=== PATIENT | female | born 1985 | race Caucasian/White ===

== ENCOUNTER 2017-04-26 14:07 | Inpatient (IN) | payer OTHER ==
[2017-04-26] MEDS: LACTATED RINGER'S 1,000 ML IV ×2 (15:29→23:33)
[2017-04-26] MEDS ORDERED: MISOPROSTOL 200 MCG TAB PR (15:30)
[2017-04-26] MEDS ORDERED: IBUPROFEN 600 MG TAB PO (15:30)
[2017-04-26] MEDS ORDERED: METHYLERGONOVINE 0.2 MG INJ IM (15:30)
[2017-04-26] MEDS ORDERED: CARBOPROST 250 MCG INJ IM (15:30)
[2017-04-26] MEDS ORDERED: LIDOCAINE 1% (MPF) 30 ML INJ INJ (15:30)
[2017-04-26] MEDS ORDERED: OXYTOCIN 30 UNITS/LR 500 ML IV ×2 (15:30)
[2017-04-26 15:37] LABS: ADD MAN DIFF? NO
[2017-04-26 15:41] LABS: BASOPHILS % 0.2 % (0.0-2.0); EOSINOPHILS # 0.1 10^3/ul (0.0-0.5); EOSINOPHILS % 0.8 % (0.0-7.0); HEMATOCRIT 34.6 % (37.0-47.0); HEMOGLOBIN 12.2 g/dl (12.0-16.0); LYMPHOCYTES % 16.8 % (15.0-51.0); MEAN CORPUSCULAR HEMOGLOBIN 31.8 pg (29.0-33.0); MEAN CORPUSCULAR HGB CONC 35.3 g/dl (32.0-37.0); MEAN CORPUSCULAR VOLUME 90.1 fl (82.0-101.0); MEAN PLATELET VOLUME 10.1 fl (7.4-10.4); MONOCYTE # 0.9 10^3/ul (0.3-0.9); MONOCYTES % 7.8 % (0.0-11.0); NEUTROPHIL # 8.7 10^3/ul (1.6-7.5); NEUTROPHILS % 73.3 % (39.0-77.0); PLATELET COUNT 214 10^3/UL (140-415); RED BLOOD COUNT 3.84 10^6/ul (4.20-5.40); RED CELL DISTRIBUTION WIDTH 13.1 % (11.5-14.5)
[2017-04-26 15:41] LABS: WHITE BLOOD COUNT 11.9 10^3/ul (4.8-10.8)
[2017-04-26 15:43] LABS: INR 0.91; PROTIME 12.3 Sec (11.9-14.9)
[2017-04-26 15:44] LABS: PARTIAL THROMBOPLASTIN TIME 24.7 Sec (25.0-35.0)
[2017-04-26 16:00] LABS: CANNABINOIDS Negative (NEGATIVE)
[2017-04-26 16:04] LABS: AMPHETAMINE/METHAMPHETAMINE Negative (NEGATIVE); BARBITURATES Negative (NEGATIVE); BENZODIAZEPINES Negative (NEGATIVE); COCAINE Negative (NEGATIVE); OPIATES Negative (NEGATIVE)
[2017-04-26] MEDS ORDERED: MISOPROSTOL 200 MCG TAB VAG ×2 (16:30)
[2017-04-26 16:47] LABS: HIV 1&2 ANTIBODY NEGATIVE (NEGATIVE)
[2017-04-26 16:48] LABS: HEPATITIS B SURFACE ANTIGEN NEGATIVE (NEGATIVE)
[2017-04-26] MEDS: MISOPROSTOL 100 MCG TAB VAG ×2 (17:12→21:12)
[2017-04-26 22:58] LABS: RAPID PLASMA REAGIN NONREACTIVE (NR)
[2017-04-27] MEDS: MISOPROSTOL 100 MCG TAB VAG (01:15)
[2017-04-27] MEDS: BUTORPHANOL 2 MG INJ IV (01:16)
[2017-04-27] MEDS ORDERED: LACTATED RINGER'S 1,000 ML IV (04:01)
[2017-04-27] MEDS: LACTATED RINGER'S 1,000 ML IV ×2 (04:17→07:57)
[2017-04-27] MEDS ORDERED: FENTAnyl 2MCG/ML-ROPIV 0.2% 100 ML (04:50)
[2017-04-27] MEDS ORDERED: NALOXONE (0.4 MG/ML) INJ IV (05:30)
[2017-04-27] MEDS ORDERED: OXYTOCIN 30 UNITS/LR 500 ML IV ×2 (06:00→11:00)
[2017-04-27] MEDS: ONDANSETRON 4 MG INJ IV (07:55)
[2017-04-27] MEDS: FENTAnyl 2MCG/ML-ROPIV 0.2% 100 ML BAG EPI (09:34)
[2017-04-27] MEDS: OXYTOCIN 30 UNITS/LR 500 ML IV ×3 (10:33→16:25)
[2017-04-27] MEDS ORDERED: ONDANSETRON 4 MG TAB PO (11:00)
[2017-04-27] MEDS ORDERED: HYDROCODONE/APAP (5/325) TAB PO (11:00)
[2017-04-27] MEDS ORDERED: CARBOPROST 250 MCG INJ IM (11:00)
[2017-04-27] MEDS ORDERED: MISOPROSTOL 200 MCG TAB PR (11:00)
[2017-04-27] MEDS ORDERED: METHYLERGONOVINE 0.2 MG INJ IM (11:00)
[2017-04-27] MEDS ORDERED: ACETAMINOPHEN 325 MG TAB PO (11:00)
[2017-04-27] MEDS: IBUPROFEN 600 MG TAB PO ×3 (12:08→23:58)
[2017-04-27] MEDS: WITCH HAZEL/GLYCERIN PAD PR (16:26)
[2017-04-27] MEDS: SENNA/DOCUSATE NA (8.6MG/50MG) TAB PO (21:35)
[2017-04-27] MEDS: ZOLPIDEM 5 MG TAB PO (21:35)
[2017-04-28 04:27] LABS: RHOGAM PROFILE 1 1
[2017-04-28] MEDS: IBUPROFEN 600 MG TAB PO (06:19)
[2017-04-28 08:41] LABS: ADD MAN DIFF? NO
[2017-04-28] MEDS: SENNA/DOCUSATE NA (8.6MG/50MG) TAB PO (08:46)
[2017-04-28 08:50] LABS: BASOPHILS % 0.2 % (0.0-2.0); EOSINOPHILS # 0.1 10^3/ul (0.0-0.5); EOSINOPHILS % 0.7 % (0.0-7.0); HEMATOCRIT 31.8 % (37.0-47.0); HEMOGLOBIN 11.1 g/dl (12.0-16.0); LYMPHOCYTES # 1.7 10^3/ul (0.8-2.9); MEAN CORPUSCULAR HEMOGLOBIN 32.6 pg (29.0-33.0); MEAN CORPUSCULAR HGB CONC 34.9 g/dl (32.0-37.0); MEAN CORPUSCULAR VOLUME 93.3 fl (82.0-101.0); MEAN PLATELET VOLUME 9.4 fl (7.4-10.4); MONOCYTE # 0.8 10^3/ul (0.3-0.9); MONOCYTES % 5.5 % (0.0-11.0); NEUTROPHIL # 11.5 10^3/ul (1.6-7.5); NEUTROPHILS % 80.6 % (39.0-77.0); PLATELET COUNT 168 10^3/UL (140-415); RED BLOOD COUNT 3.41 10^6/ul (4.20-5.40); RED CELL DISTRIBUTION WIDTH 13.1 % (11.5-14.5)
[2017-04-28 08:50] LABS: WHITE BLOOD COUNT 14.3 10^3/ul (4.8-10.8)
[2017-04-28] MEDS: INFLUENZA VIRUS VACCINE 0.5 ML (DISPENSING) IM* (09:51)
[2017-04-28 12:16] LABS: RUBELLA ANTIBODY - IGG 7.16 index; RUBELLA ANTIBODY - IGM <20.00 AU/mL
== END 2017-04-28 10:20 | disposition home or self-care (01) | DRG 774 ==
LOC: OBT 14:07 → PP1 04-27 15:56 → L-D 14:09 → OBT 14:25 → L-D 14:25
PROC: 10E0XZZ Delivery of Products of Conception, External Approach (ICD-10-PCS; principal; 2017-04-27)
PROC: 0HQ9XZZ Repair Perineum Skin, External Approach (ICD-10-PCS; 2017-04-27)
DX: O36.4XX0 Maternal care for intrauterine death, not applicable or unspecified (principal); O45.93 Premature separation of placenta, unspecified, third trimester; O24.420 Gestational diabetes mellitus in childbirth, diet controlled; Z37.1 Single stillbirth; O69.81X0 Labor and delivery complicated by cord around neck, without compression, not applicable or unspecified; Z3A.36 36 weeks gestation of pregnancy
CPT/HCPCS: 62319; 76818; 80307; 82962; 85025; 85610; 85730; 86592; 86703; 86762; 86850; 86870; 86885; 86900; 86901; 87340; 88307